=== PATIENT | female | born 1995 | race Caucasian/White ===

== ENCOUNTER 2019-03-27 08:36 | Inpatient (IN) | payer OTHER ==
[2019-03-27] VITALS (12 sets, daily range): BP systolic 93–120; BP diastolic 53–68
[~2019-03-27] VITALS: Ht 152.4 cm; Wt 52.2 kg
[~2019-03-27 08:36] MED LIST: ADVAIR 250/501 EA INH; AUGMENTIN ES-6100 ML PO; CLARITIN10 MG PO; DUONEB 3 MG/3 ML3 M1 INH; MOTRIN800 MG PO; PREDNISONE10 M1 PO; PREDNISONE10 MG PO; PROVENTIL0.09 MG/A1 INH; TESSALON PERLE100 MG PO; VIBRAMYCIN100 MG PO
[2019-03-27 09:07] LABS: BILIRUBIN NEGATIVE (NEGATIVE); BLOOD 1+ (NEGATIVE); CLARITY SL CLOUDY (CLEAR); COLOR YELLOW (YELLOW); GLUCOSE NEGATIVE (NEGATIVE); KETONE NEGATIVE (NEGATIVE); LEUKO ESTERASE NEGATIVE (NEGATIVE); NITRITE NEGATIVE (NEGATIVE); PH 8.5 (5.0-9.0); UROBILINOGEN 0.2 E.U./dl (0.2-1.0)
[2019-03-27 09:34] LABS: BACTERIA 1+
[2019-03-27 09:42] LABS: BASO % 0.3 % (0.0-1.0); EOS # 0.1 10*3/uL (0.0-0.4); EOS % 0.8 % (1.0-4.0); HEMATOCRIT 40.6 % (37.0-47.0); HEMOGLOBIN 13.6 g/dl (12.0-16.0); LYMPH # 0.9 10*3/uL (1.3-4.4); LYMPH % 8.2 % (27.0-41.0); MEAN CELL VOLUME 91.4 fl (81.0-99.0); MEAN CORPUSCULAR HGB 30.6 pg (27.0-31.0); MEAN CORPUSCULAR HGB CONC 33.5 g/dl (33.0-37.0); MEAN PLATELET VOLUME 10.5 fl (9.6-12.3); MONO # 0.7 10*3/uL (0.1-1.0); NEUT # 8.8 10*3/uL (2.3-7.9); NEUT % 83.4 % (47.0-73.0); PLATELET COUNT AUTOMATED 223 10*3/uL (130-400); RED BLOOD COUNT 4.44 10*6/uL (4.10-5.10); WHITE BLOOD COUNT 10.6 10*3/uL (4.8-10.8)
[2019-03-27 10:00] LABS: ALBUMIN 3.9 gm/dl (3.1-4.5); ALKALINE PHOSPHATASE 70 U/L (45-117); BUN 15 mg/dl (7-24); CHLORIDE 106 mmol/L (98-107); CREATININE 0.78 mg/dL (0.55-1.02); LIPASE 79 U/L (73-393); POTASSIUM 3.7 mmol/L (3.5-5.1); SGOT/AST 13 IU/L (3-35); SGPT/ALT 15 U/L (12-78); SODIUM 139 mmol/L (136-145); TOTAL PROTEIN 7.6 gm/dL (6.4-8.2)
[2019-03-27 10:01] LABS: BETA-HCG, QUANT < 1.0 mIU/mL (1-3)
[2019-03-27] MEDS ORDERED: NORCO 5-325 TA1 EACH PO (14:34)
[2019-03-28] VITALS: BP 101/58
[2019-03-28 08:00] VITALS: BP 105/57
[2019-03-28 12:00] VITALS: BP 104/55
== END 2019-03-28 13:24 | disposition home or self-care (01) | DRG 342 ==
LOC: ED 08:36 → EDHOLD 11:15 → 5E 11:15
PROVIDERS: Emergency Medicine; ADMIT Internal Medicine
PROC: 0DTJ4ZZ Resection of Appendix, Percutaneous Endoscopic Approach (ICD-10-PCS; principal; 2019-03-27)
DX: K35.890 Other acute appendicitis without perforation or gangrene (principal); E44.1 Mild protein-calorie malnutrition; N83.202 Unspecified ovarian cyst, left side; R00.0 Tachycardia, unspecified; J45.909 Unspecified asthma, uncomplicated; Z79.899 Other long term (current) drug therapy; Z68.22 Body mass index [BMI] 22.0-22.9, adult